=== PATIENT | female | born 1955 | race Caucasian/White ===

== ENCOUNTER 2020-10-04 19:50 | Inpatient (IN) | payer MEDICAID ==
[~2020-10-04] VITALS: Ht 157.5 cm; Wt 63.5 kg
[2020-10-04 21:53] LABS: HEMATOCRIT. 37.3 % (36.0-48.0); HEMOGLOBIN. 12.8 g/dL (12.0-16.0); MEAN CORPUSCULAR HEMOGLOBIN 27.5 pg (28.0-32.0); MEAN CORPUSCULAR VOLUME 79.9 fL (81.0-99.0); MEAN PLATELET VOLUME 8.6 fl (7.4-10.4); PLATELET 195 x1000/uL (130-400); RED BLOOD CELL COUNT 4.67 mill/uL (4.2-5.4); RED CELL DISTRIBUTION WIDTH 13.5 % (11.6-14.6)
[2020-10-04 21:55] LABS: CHLORIDE 106 mEq/L (98-107)
[2020-10-04 22:09] LABS: PLATELET ESTIMATE NORMAL
[2020-10-04] MEDS ORDERED: ONDANSETRON HCL 4MG/2ML INJ IV ONE (23:00)
[2020-10-04] MEDS ORDERED: MORPHINE SULFATE 2 MG/ML CPJ (NOT FOR IM USE) IV ONE (23:00)
[2020-10-04] MEDS ORDERED: ACETAMINOPHEN 325MG TABLET PO ONE (23:30)
[2020-10-05 05:30] VITALS: BP 153/71
[2020-10-05 06:30] VITALS: BP 153/71
[2020-10-05] MEDS ORDERED: LISI40TA13 MT (07:21)
[2020-10-05 08:00] VITALS: BP 147/67
[2020-10-05] MEDS ORDERED: DIPHENHYDRAMINE 50MG/ML VIAL IV PRN (08:30)
[2020-10-05] MEDS ORDERED: ACETAMINOPHEN 325MG TABLET PO PRN (08:30)
[2020-10-05] MEDS ORDERED: CLONIDINE 0.1MG TABLET PO PRN (08:30)
[2020-10-05] MEDS ORDERED: MORPHINE SULFATE 2 MG/ML CPJ (NOT FOR IM USE) IV PRN (08:30)
[2020-10-05] MEDS ORDERED: ONDANSETRON HCL 4MG/2ML INJ IV PRN (08:30)
[2020-10-05 12:12] VITALS: BP 153/64
[2020-10-05] MEDS ORDERED: HYDROCODONE/ACETAMINOPHEN 5/325MG TABLET PO PRN (13:15)
[2020-10-05] MEDS ORDERED: HYDR-4001 MT (13:16)
[2020-10-05 15:38] VITALS: BP 153/64
[2020-10-05 15:42] VITALS: BP 117/43
== END 2020-10-05 16:35 | disposition home or self-care (01) | DRG 342 ==
LOC: ER 19:50 → 6WST 10-05 00:47 → ENRESERV 10-05 03:32
PROVIDERS: ADMIT Internal Medicine; ATTEND Internal Medicine
DX: S82.142A Displaced bicondylar fracture of left tibia, initial encounter for closed fracture (principal); D72.829 Elevated white blood cell count, unspecified; I10 Essential (primary) hypertension; W01.0XXA Fall on same level from slipping, tripping and stumbling without subsequent striking against object, initial encounter; Y93.89 Activity, other specified; Y99.8 Other external cause status; Y92.098 Other place in other non-institutional residence as the place of occurrence of the external cause; Z79.899 Other long term (current) drug therapy
CPT/HCPCS: 36415; 73560; 73590; 73700; 80048; 85025; 93005; 93970; 97116; 97162; 97530; 99285; L1830